=== PATIENT | female | born 2000 ===

== ENCOUNTER 2023-09-09 15:46 | Emergency (ER) | payer OTHER, SELFPAY ==
[2023-09-09 16:03] VITALS: BP 149/88
[2023-09-09 16:42] LABS: % Basophils 0.3 % (0-2); % Eosinophils 0.5 % (0-6); % Immature Granulocytes 0.2 % (0-0.5); % Lymphocytes 40.5 % (20.5-51.1); % Monocytes 6.1 % (1.7-9.3); % Neutrophils 52.4 % (42.2-75.2); Absolute Lymphocytes 2.4 10^3/uL (1.2-3.4); Absolute Monocytes 0.4 10^3/uL (0.1-0.6); Absolute Neutrophils 3.2 10^3/uL (1.4-6.5); Hemoglobin 13.1 g/dL (12.0-16.0); Mean Corp Hgb Conc. 33.6 g/dL (33.0-37.0); Mean Corpuscular Hgb 28.4 pg (27.0-31.0); Mean Corpuscular Volume 84.6 fL (81.0-99.0); Mean Platelet Volume 11.4 fL (7.4-10.4); Nucleated Red Blood Cells % 0 %; Platelet Count 236 10^3/uL (130-400); Red Blood Cell Count 4.61 10^6/uL (4.20-5.40); Red Cell Dist. Width 11.8 % (11.5-14.5)
[2023-09-09 16:47] LABS: HCG, Serum Qualitative Screen Negative
[2023-09-09 16:50] LABS: ALT (SGPT) 47 U/L (0-35); AST (SGOT) 34 U/L (14-36); Alkaline Phosphatase 60 U/L (38-126); Blood Urea Nitrogen 9 mg/dl (7-17); Calcium 9.6 mg/dl (8.4-10.2); Carbon Dioxide 26 mmol/L (22-30); Chloride 100 mmol/L (98-107); Glucose 90 mg/dl (70-99); Potassium 3.7 mmol/L (3.5-5.1); Sodium 136 mmol/L (135-145); Total Bilirubin 0.6 mg/dl (0.2-1.3); Total Protein 6.7 g/dl (6.3-8.2); eGFR > 60.00
[2023-09-09 16:51] LABS: COVID-19 Antigen Negative (Negative)
--- NOTE | 2023-09-09 17:00 | ED.GENMED ---
History of Present Illness
General
Chief Complaint: Throat Problem
Time Seen by Provider: 09/09/23 16:49
Travel History
Have you had any contact with someone who has COVID-19?: No
Do you have any symptoms of coronavirus? Fever > 100 degrees, chills, cough, shortness of breath, sore throat, loss of taste or smell, muscle aches, or headache?: No
History of Present Illness
History of Present Illness:
22-year-old female presents to the emergency department for evaluation of sore throat and pain to the anterior cervical lymph nodes beginning yesterday. States that she had a productive cough last week and was given azithromycin which seemed to
improve her symptoms. Developed fever body aches again yesterday. No nausea or vomiting. No dyspnea.
Review of Systems
Review of Systems
Allergies reviewed?: Yes
All Other Systems: ROS reviewed and negative except as documented in HPI and ROS
Phy Exam
Physical Exam
Physical Exam:
GEN: Well appearing, NAD, WDWN
HEENT: Oral mucosa moist, no scleral icterus
Cardiac: Regular rate and rhythm, no murmurs or rubs
Lung: No respiratory distress, no tachypnea, lungs clear to auscultation bilaterally
MSK: No gross deformity or injuries
Skin: Good color, no pallor or jaundice, no rashes
Neuro: AO x3, moves all extremities freely
Psych: Calm, cooperative
Course
Orders/Labs/Results
Orders:
Orders
09/09/23 16:13
Add On- LAB Urgent
Tests Added?: serum hcg quant
09/09/23 16:14
CMP [Comprehensive Metabolic Panel] Urgent
COVID-19 Antigen Urgent
Source: Nasal Swab
Complete Blood Count/With Diff Urgent
HCG, Serum Qualitative Screen Urgent
Comment: ADD ON
INF RAPID [Influenza A+B Rapid Molecular] Urgent
LAUREN Source: Nasal Swab
Specimen Description:
Date Specimen was Collected: 09/09/23
Time Specimen was Collected: 16:08
Rapid Strep Group A Urgent
LAUREN Source: Throat/Pharynx
Specimen Description:
Date Specimen was Collected: 09/09/23
Time Specimen was Collected: 16:08
Abnormal Lab Results
09/09/23
16:14
MPV 11.4 H fL
(7.4-10.4)
ALT 47 H U/L
(0-35)
09/09/23 16:14
09/09/23 16:14
Vital Signs
Initial and Last Documented VS:
Initial Vital Signs
Temp Pulse Resp BP Pulse Ox
98.9 F 74 16 149/88 98
09/09/23 16:03 09/09/23 16:03 09/09/23 16:03 09/09/23 16:03 09/09/23 16:03
Last Documented Vital Signs
Temp Pulse Resp BP Pulse Ox
98.9 F 74 16 149/88 98
09/09/23 16:03 09/09/23 16:03 09/09/23 16:03 09/09/23 16:03 09/09/23 16:03
MDM/Problems Addressed
MDM/Problems Addressed:
Educated the patient that she is positive for flu and supportive care is indicated. She requests tamiflu, no risk factors for severe disease however will send Rx
*Critical Care Note
Total Time (30-74mins, 75-104mins- exclusive of procedures): Not Applicable
ED Attending Note
-
Portions of this chart may have been created with voice recognition software.� Occasional wrong word or��sound alike� substitutions may have occurred due to the inherent limitations of voice recognition software.
Discharge Plan
Departure
Patient Disposition: Home (Routine Discharge)
Date of Disposition: 09/09/23
Time of Disposition: 17:00
Patient with high blood pressure during this ER visit?: No
Discharge Problem:
Influenza A
Instructions: Flu, Adult (DC)
Prescriptions:
New
oseltamivir [Tamiflu] 75 mg capsule
75 mg PO BID Qty: 10 0RF
Interventions
Interventions:
*Risk Screen - Suicide Last Done: 09/09/23 16:03
*Neglect/Abuse Screening Last Done: 09/09/23 16:03
*ED COVID-19 Vaccine History Last Done: 09/09/23 16:03
*Nursing Disposition Last Done: 09/09/23 17:28
Discharge Date and Time
Discharge Date/Time: 09/09/23 17:32
== END 2023-09-09 17:32 | disposition home or self-care (01) ==
LOC: EMR 15:46
PROVIDERS: Emergency Medicine; EMERGENCY PHYSICIAN Student in an Organized Health Care Education/Training Program; FAMILY PHYSICIAN Internal Medicine
DX: J10.1 Influenza due to other identified influenza virus with other respiratory manifestations (principal)
CPT/HCPCS: 99283; 80053; 84703; 85025; 87070; 87502; 87811; 87880

== ENCOUNTER 2024-04-06 17:08 | Emergency (ER) | payer OTHER, SELFPAY ==
[2024-04-06 17:18] VITALS: BP 146/89
[2024-04-06 17:48] LABS: % Basophils 0.6 % (0-2); % Immature Granulocytes 0.4 % (0-0.5); % Lymphocytes 33.9 % (20.5-51.1); % Monocytes 6.7 % (1.7-9.3); % Neutrophils 57.4 % (42.2-75.2); Absolute Eosinophils 0.1 10^3/uL (0-0.7); Absolute Lymphocytes 2.4 10^3/uL (1.2-3.4); Absolute Monocytes 0.5 10^3/uL (0.1-0.6); Hematocrit 42.1 % (37.0-47.0); Hemoglobin 14.5 g/dL (12.0-16.0); Mean Corp Hgb Conc. 34.4 g/dL (33.0-37.0); Mean Corpuscular Hgb 28.7 pg (27.0-31.0); Mean Corpuscular Volume 83.4 fL (81.0-99.0); Mean Platelet Volume 10.7 fL (7.4-10.4); Nucleated Red Blood Cells % 0 %; Platelet Count 236 10^3/uL (130-400); Red Blood Cell Count 5.05 10^6/uL (4.20-5.40); Red Cell Dist. Width 11.9 % (11.5-14.5); Urine Albumin Trace (Neg - Trace); Urine Bilirubin Negative (Negative); Urine Character Clear (Clear); Urine Color Yellow; Urine Glucose Negative (Negative); Urine Ketone 2+ (Negative); Urine Leukocyte Negative (Negative); Urine Nitrite Negative (Negative); Urine Occult Blood Negative (Negative); Urine Specific Gravity 1.015 (<1.030); Urine Urobilinogen Negative (Neg - 1+)
[2024-04-06 18:07] LABS: HCG, Serum Qualitative Screen Negative
[2024-04-06 18:10] LABS: ALT (SGPT) 23 U/L (0-35); AST (SGOT) 20 U/L (14-36); Albumin 4.7 g/dl (3.5-5.0); Alkaline Phosphatase 43 U/L (38-126); Blood Urea Nitrogen 7 mg/dl (7-17); Calcium 9.7 mg/dl (8.4-10.2); Carbon Dioxide 24 mmol/L (22-30); Chloride 101 mmol/L (98-107); Glucose 91 mg/dl (70-99); Lipase 41 U/L (23-300); Sodium 137 mmol/L (135-145); Total Bilirubin 0.7 mg/dl (0.2-1.3); eGFR > 60.00
--- NOTE | 2024-04-06 19:45 | ED.GENMED ---
History of Present Illness
<Michaela Bagley PA-C - Last Filed: 04/07/24 10:16>
General
Chief Complaint: Abdominal Pain
Source: patient
Exam Limitations: none
Time Seen by Provider: 04/06/24 19:01
Nursing documentation reviewed up to this point in time: agreed with
History of Present Illness
History of Present Illness:
pt is a 23 y/o F with no sig pmh
says 2 weeks ago she had some vaginal discharge, itching and some discomfort with urination
went to ob/gyne and had STI testinga nd urine which were neg
continued to have the urinary symptoms, vaginal cleared up and so on 03/29 went to urgent care and had UA which was sent out for testing
she says she just received a call today saying she had + urine culture and she needed to come to the ER for abx since the doctor wasn't aailable to send prescription
pt says she has had abdominal pain, back pain and headaches for 1 week that is worseing
no fever/chills
some nauesa, no vomiting
has 1 sexual partner
came off control a few months ago
Past History
<Michaela Bagley PA-C - Last Filed: 04/07/24 10:16>
Past History
ED Past Medical History: None
ED Past Surgical History: None
Social History
Tobacco: Non-smoker
Alcohol: None
Drug: None
Personal: Single
Living: with family
Review of Systems
<ARTIS Henriquez Last Filed: 04/07/24 10:16>
Review of Systems
Allergies reviewed?: Yes
All Other Systems: Not applicable
Phy Exam
<ARTIS Henriquez Last Filed: 04/07/24 10:16>
Physical Exam
Physical Exam:
GENERAL: Alert, nontoxic appearing
Neck: supple
CARDIAC: Regular rate and rhythm .
LUNGS: Clear breath sounds bilaterally, no acute respiratory distress, no wheezes/rales/rhonchi
ABDOMEN: Soft, normal bowel sounds, nondistended, mild suprapubic and L flank tenderness; no guarding, no rebound, neg ham's
back: mild L lower lumbar tednerness;
NEUROLOGICAL: Alert and oriented, no focal neuro deficits
SKIN: Warm and dry, skin intact.
PSYCH: Normal and appropriate interaction.
Course
<Michaela Bagley PA-C - Last Filed: 04/07/24 10:16>
Orders/Labs/Results
Orders:
Orders
04/06/24 17:21
Test Result ONCE
04/06/24 17:34
Complete Blood Count/With Diff Urgent
Comprehensive Metabolic Panel Urgent
HCG, Serum Qualitative Screen Urgent
Lipase Urgent
Urine Culture Reflexed from UA [Urinalysis Reflex To Culture] Urgent
Date Specimen was Collected: 04/06/24
Time Specimen was Collected: 17:21
04/06/24 19:41
CT Abd/Pel (IV only)-DH only Urgent
Comment:
Reason For Exam: L flank pain, enterococcus urine
0.9% Sodium Chloride 1000 ml [Nss] 1,000 ml IV BOLUS
Ketorolac [Toradol] 15 mg IV NOW STA
04/06/24 20:02
Ciprofloxacin 400 mg/[id number] [Cipro 400 mg] 200 ml IV NOW
Fluconazole [Diflucan] 150 mg PO NOW STA
Abnormal Lab Results
04/06/24
17:34
MPV 10.7 H fL
(7.4-10.4)
Urine Ketones 2+ A
(Negative)
04/06/24 17:34
04/06/24 17:34
Vital Signs
Initial and Last Documented VS:
Initial Vital Signs
Temp Pulse Resp BP Pulse Ox
98.2 F 83 20 146/89 99
04/06/24 17:18 04/06/24 17:18 04/06/24 17:18 04/06/24 17:18 04/06/24 17:18
Last Documented Vital Signs
Temp Pulse Resp BP Pulse Ox
98.2 F 94 18 118/80 99
04/06/24 17:18 04/06/24 22:52 04/06/24 22:52 04/06/24 22:52 04/06/24 17:18
<Benjamin Pickering MD - Last Filed: 04/08/24 11:50>
Orders/Labs/Results
Orders:
Orders
04/06/24 17:21
Test Result ONCE
04/06/24 17:34
Complete Blood Count/With Diff Urgent
Comprehensive Metabolic Panel Urgent
HCG, Serum Qualitative Screen Urgent
Lipase Urgent
Urine Culture Reflexed from UA [Urinalysis Reflex To Culture] Urgent
Date Specimen was Collected: 04/06/24
Time Specimen was Collected: 17:21
04/06/24 19:41
CT Abd/Pel (IV only)-[facility] only Urgent
Comment:
Reason For Exam: L flank pain, enterococcus urine
0.9% Sodium Chloride 1000 ml [Nss] 1,000 ml IV BOLUS
Ketorolac [Toradol] 15 mg IV NOW STA
04/06/24 20:02
Ciprofloxacin 400 mg/[id number] [Cipro 400 mg] 200 ml IV NOW
Fluconazole [Diflucan] 150 mg PO NOW STA
Abnormal Lab Results
04/06/24
17:34
MPV 10.7 H fL
(7.4-10.4)
Urine Ketones 2+ A
(Negative)
04/06/24 17:34
04/06/24 17:34
Vital Signs
Initial and Last Documented VS:
Initial Vital Signs
Temp Pulse Resp BP Pulse Ox
98.2 F 83 20 146/89 99
04/06/24 17:18 04/06/24 17:18 04/06/24 17:18 04/06/24 17:18 04/06/24 17:18
Last Documented Vital Signs
Temp Pulse Resp BP Pulse Ox
98.2 F 94 18 118/80 99
04/06/24 17:18 04/06/24 22:52 04/06/24 22:52 04/06/24 22:52 04/06/24 17:18
<Michaela Bagley PA-C - Last Filed: 04/07/24 10:16>
MDM/Problems Addressed
Differential Diagnosis Includes:
uti, kidney stone
MDM/Problems Addressed:
23 y/o F
1.5 weeks of urinary sypmtoms, urgency, dysuria, pelvic pain, nauesa, headache
went to urgent care last week and had abnormal ua but was not called with culture until today which is positive for enterococcus
it is sensitive to cipro
no abx were initiated
she has had headache, flank pain, nausea, but no vomiting
pt appears nontoxic
reassured by her labs
even her UA doesn't appear infected
but given this was untreated urine and she is still symptomstic, will give dose of IV abx
ct to r/o obstructive uropathy, with her flank tenderness will do with IV contrast
<Michaela Bagley PA-C - Last Filed: 04/07/24 10:16>
*Critical Care Note
Total Time (30-74mins, 75-104mins- exclusive of procedures): Not Applicable
<Benjamin iPckering MD - Last Filed: 04/08/24 11:50>
Update Note
Update Note:
Received phone call from patient, requesting a different antibiotics, as she feels worse, i.e. increased pain/nausea sensation, when taking ciprofloxacin. Reviewed patient's chart and discussed patient's current symptoms, i.e. generalized weakness,
fatigue and decreased appetite, along with nonspecific lower abdominal discomfort. Patient currently does not have any specific UTI symptoms, but patient has had asymptomatic UTI, which progressed to kidney infection in the past. As such, after
discussion, decision made to provide prescription for Omnicef, and next 24 hours, if her symptoms persist, as well as PCP follow-up next week for reevaluation.
ED Attending Note
<Michaela Bagley PA-C - Last Filed: 04/07/24 10:16>
-
Portions of this chart may have been created with voice recognition software.� Occasional wrong word or��sound alike� substitutions may have occurred due to the inherent limitations of voice recognition software.
Discharge Plan
Departure
Patient Disposition: Home (Routine Discharge)
Date of Disposition: 04/06/24
Time of Disposition: 22:30
Patient with high blood pressure during this ER visit?: Yes
Discharge Problem:
UTI (urinary tract infection)
Instructions: Urinary Tract Infection, Adult ED, BLOOD PRESSURE
Prescriptions:
New
ciprofloxacin HCl [Cipro] 500 mg tablet
500 mg PO BID Qty: 14 0RF
cefdinir 300 mg capsule
300 mg PO Q12H Qty: 14 0RF
No Action
oseltamivir [Tamiflu] 75 mg capsule
75 mg PO BID Qty: 10 0RF
Referrals:
UNKNOWN - PT DOES,NOT KNOW [Unknown Provider] -
Activity Restrictions/Additional Instructions:
YOUR BLOOD WORK WAS REASSURING
YOU WERE GIVEN DIFLUCAN FOR YEAST IN YOUR URINE ON THE CULTURE
YOU WERE GIVEN A DOSE OF IV ANTIBIOTICS
TAKE CIPRO TWICE A DAY FOR 7 DAYS
DRINK FLUIDS
TYLENOL FOR PAIN NEEDED, MOTRIN NEEDED
RETURN FOR ANY CONCERNS
OTHERWISE SEE YOUR FAMILY DOCTOR THIS WEEK
Interventions
Interventions:
*Risk Screen - Suicide Last Done: 04/06/24 17:18
*General Assessment Last Done: 04/06/24 17:18
*Neglect/Abuse Screening Last Done: 04/06/24 17:18
ED- Fall Risk Assessment Last Done: 04/06/24 19:07
*ED COVID-19 Vaccine History Last Done: 04/06/24 19:07
*Nursing Disposition Last Done: 04/06/24 22:52
JR-Pfsmpf-Numhuezadc Assessment Last Done: 04/06/24 19:07
Discharge Date and Time
Discharge Date/Time: 04/06/24 22:53
Print Language: LITHUANIAN
[2024-04-06 20:00] VITALS: BMI 23.1
[2024-04-06] MEDS: TORADOL 15 MG IV (20:08)
[2024-04-06] MEDS: NSS 1000 IV (20:08)
[2024-04-06] MEDS: CIPRO 400 MG 200 IV (20:11)
[2024-04-06] MEDS: DIFLUCAN 150 MG PO (20:17)
[2024-04-06 22:51] VITALS: BP 118/80
[2024-04-06 22:52] VITALS: BP 118/80
== END 2024-04-06 22:53 | disposition home or self-care (01) ==
LOC: EMR 17:08
PROVIDERS: Emergency Medicine; EMERGENCY PHYSICIAN Emergency Medicine; FAMILY PHYSICIAN Internal Medicine
DX: N39.0 Urinary tract infection, site not specified (principal); B95.2 Enterococcus as the cause of diseases classified elsewhere; R10.9 Unspecified abdominal pain; R51.9 Headache, unspecified; M54.9 Dorsalgia, unspecified; R03.0 Elevated blood-pressure reading, without diagnosis of hypertension
CPT/HCPCS: 99285; 96375; 96361; 96374; 74177; 80053; 81003; 83690; 84703; 85025; Q9967